=== PATIENT | female | born 1980 | race Caucasian/White ===

== ENCOUNTER 2018-10-10 08:23 | Emergency (ER) | payer SELFPAY ==
[2018-10-10 08:24] VITALS: BP 140/90; PULSE 103; RESP 18; TEMP 36.6; O2SAT 100; BMI 28.9
--- NOTE | 2018-10-10 08:38 | EKG12_ITS ---
Test Reason : DIZZINESS Blood Pressure : / mmHG Vent. Rate : 089 BPM Atrial Rate : 089 BPM P-R Int : 152 ms QRS Dur : 080 ms QT Int : 372 ms P-R-T Axes : 071 043 043 degrees QTc Int : 452 ms Normal sinus rhythm Normal ECG Confirmed by DAVON DU ([id number]), department editor DEBBI SALAS ([id number]) on 10/15/2018 1:34:05 PM Referred By: FERNANDO
--- NOTE | 2018-10-10 08:39 | ED.VIS.GEN ---
History of Present Illness Chief Complaint: Dizziness Detail of Chief Complaint: Intermittent dizzy episodes Informant: Patient Onset: Days Context: Gradual Onset Timing: Lasts - Minutes Current Severity: Mild Maximum Severity: Moderate Narrative: Patient presents with intermittent dizzy episodes. She states is been ongoing for the past couple of days. It tends to last only a few minutes at a time. She has noted some abdominal cramping with it and feels like her heart is racing. Today she felt like she might pass out. She denies chest pain or headache. No recent URI symptoms. Past Medical History - Allergies and Home Meds Allergies/Adverse Reactions: Allergies No Known Allergies Allergy (Verified 10/10/18 08:25) Primary Care Physician: LA OLGUIN [Other] Prior records reviewed: Yes Past Medical History: - - Reviewed Surgical History: hysterectomy Smoking Status: Former smoker Alcohol: None Drugs: Marijuana Review of Systems General: Denies: Chills, Fever Eyes: Denies: Visual changes - bilaterally ENT: Denies: Bilateral ear pain Cardiovascular: Reports: Heart racing. Denies: Chest pain Respiratory: Denies: Dyspnea, Cough Gastrointestinal: Reports: Abdominal pain. Denies: Nausea, Vomiting, Diarrhea Genitourinary: Denies: Dysuria, Hematuria Neurological: Denies: Headache, Weakness, Parasthesia Endocrine: Denies: Polyuria, Polydipsia Hematologic: Denies: Easy bruising Allergy: Denies: Uticaria Physical Exam Vital Signs/Narrative: Vital Signs Temp Pulse Resp BP Pulse Ox 10/10/18 08:24 97.9 F 103 H 18 140/90 H 100 Inital Vital Signs reviewed: Yes General: Well nourished, Well developed Eyes: Perrl, EOMI ENT: Moist mucous membranes, TM's clear Neck: Supple Cardiovascular: Regular rate, Regular rhythm Respiratory: No distress, CTA bilaterally Abdomen: Soft, Nontender, Hypoactive bowel sounds Extremities: Nontender Skin: Normal color, No rash Neurological: Alert, Oriented x3, Normal Strength, Normal Sensation Psychological: Normal affect Diagnostic/Tx/Re-eval Laboratory Results 10/10/18 10/10/18 10/10/18 08:50 08:50 08:50 WBC RBC Hgb Hct MCV MCH MCHC RDW Std Deviation RDW Coeff of Babatunde Plt Count MPV Immature Gran % (Auto) Neut % (Auto) Lymph % (Auto) [place] % (Auto) Eos % (Auto) Baso % (Auto) Absolute Neuts (auto) Absolute Lymphs (auto) Nucleated RBC % Sodium Potassium Chloride Carbon Dioxide Anion Gap BUN Creatinine Estim Creat Clear Calc Est GFR (MDRD) Af Amer Est GFR (MDRD) Non-Af BUN/Creatinine Ratio Glucose Calcium TSH Urine Color Yellow Urine Clarity Clear Urine pH 8.0 Ur Specific [place] 1.015 Urine Protein Negative Urine Glucose (UA) Normal Urine Ketones Negative Urine Occult Blood Negative Urine Nitrite Negative Urine Bilirubin Negative Urine Urobilinogen Normal Ur Leukocyte Esterase Negative Urine RBC 0 SEEN Urine WBC 0 SEEN Ur Squamous Epith Cells 0 SEEN Urine Bacteria 0 SEEN Urine Mucus 0 SEEN Urine Opiates Screen NEGATIVE Urine Methadone Screen NEGATIVE Ur Barbiturates Screen NEGATIVE Ur Phencyclidine Scrn NEGATIVE Ur Amphetamines Screen NEGATIVE U Methamphetamin-MDMA NEGATIVE U Benzodiazepines Scrn NEGATIVE Urine Cocaine Screen NEGATIVE U Cannabinoids Screen POSITIVE H Ur Drug Screen Comment POC Glucose 137 H 10/10/18 10/10/18 09:00 09:00 WBC 9.5 RBC 5.10 Hgb 16.0 H Hct 46.5 MCV 91.2 MCH 31.4 MCHC 34.4 RDW Std Deviation 41.3 RDW Coeff of Babatunde 12.4 Plt Count 326 MPV 9.4 Immature Gran % (Auto) 0.500 Neut % (Auto) 56.5 Lymph % (Auto) 33.3 [place] % (Auto) 5.2 Eos % (Auto) 3.6 Baso % (Auto) 0.9 Absolute Neuts (auto) 5.4 Absolute Lymphs (auto) 3.16 Nucleated RBC % 0 Sodium 144 Potassium 3.5 Chloride 111 H Carbon Dioxide 25.0 Anion Gap 8 BUN 13 Creatinine 1.03 H Estim Creat Clear Calc 67.94 Est GFR (MDRD) Af Amer 78 Est GFR (MDRD) Non-Af 64 BUN/Creatinine Ratio 12.6 Glucose 137 H Calcium 9.0 TSH 1.29 Urine Color Urine Clarity Urine pH Ur Specific [place] Urine Protein Urine Glucose (UA) Urine Ketones Urine Occult Blood Urine Nitrite Urine Bilirubin Urine Urobilinogen Ur Leukocyte Esterase Urine RBC Urine WBC Ur Squamous Epith Cells Urine Bacteria Urine Mucus Urine Opiates Screen Urine Methadone Screen Ur Barbiturates Screen Ur Phencyclidine Scrn Ur Amphetamines Screen U Methamphetamin-MDMA U Benzodiazepines Scrn Urine Cocaine Screen U Cannabinoids Screen Ur Drug Screen Comment POC Glucose - EKG Initial EKG Interpretation: Sinus Rhythm - Sinus 89 with no acute ischemia. - Medical Decision Making Patient was given a liter of IV fluid. On repeat evaluation heart rate is in the 70s. Test results were discussed with her. She states she feels better as long as she is lying in bed but still felt swimmy when she walks to the bathroom. She has had vertigo in the past. She is given a dose of Antivert at this time. On repeat examination patient does feel improved. She is encouraged to increase fluids at home. She will be given a prescription for Antivert. She will be referred to kenny Gagnon on the no doc list for follow-up. ED Disposition - Plan for ED Patient: Disposition: Home or Assisted Living Diagnosis: Dizzy Instructions: DIZZINESS, Unk Cause Prescriptions: Meclizine HCl [Antivert] 25 mg PO 4X/DAY PRN PRN #20 tablet PRN Reason: Dizziness Referrals: Turner Cuellar MD [STAFF PHYSICIAN] - 1-2 Weeks
[2018-10-10 09:00] LABS: Bedside Glucose 137 mg/dL (70-110)
[2018-10-10] MEDS: 0.9% Normal Saline 1,000 ML 150 ML IV (09:05)
[2018-10-10] MEDS: 0.9% Normal Saline 1,000 ML 1000 ML IV (09:05)
[2018-10-10 09:11] LABS: Bacteria 0 SEEN /hpf (None Seen); Mucous, Urine 0 SEEN /hpf (<or=2+); Red Blood Cells-Urine 0 SEEN /hpf (0-5); Squamous Epithelial Cells - UA 0 SEEN /hpf (5-10); White Blood Cells 0 SEEN /hpf (0-5)
[2018-10-10 09:15] LABS: Color, Urine Yellow (Yellow); Glucose, Dipstick Normal (Normal); Ketone-Dipstick Negative (Negative); Leukocyte Esterase-Dipstick Negative /ul (Negative); Nitrite-Dipstick Negative (Negative); Occult Blood-Urine Negative /ul (Negative); Protein-Dipstick Negative (Negative); Specific Gravity, Urine 1.015 (1.002-1.030); Urine Bilirubin Dipstick Negative (Negative); Urine Clarity Clear (Clear); Urine Urobilinogen Normal (Normal)
[2018-10-10 09:17] LABS: Absolute Lymphocyte Count 3.16 X10^3/uL (0.83-4.51); Absolute Neutrophil Count 5.4 X10^3/uL (2.0-7.7); Basophil# 0.09 X10^3/uL; Basophil% 0.9 % (0-1); Eosinophil# 0.34 X10^3/uL; Eosinophils% 3.6 % (0-5); Hematocrit 46.5 % (37-47); Lymphocyte # 3.16 X10^3/ul (4.0); Lymphocyte % 33.3 % (19-41); Mean Corp Hgb Conc 34.4 g/dL (32-36); Mean Corpuscular Hgb 31.4 pg (27.0-32.0); Mean Corpuscular Volume 91.2 fL (81-99); Mean Platelet Vol. 9.4 fl (6.2-12.0); Monocyte# 0.49 X10^3/uL; Monocyte% 5.2 % (0-10); NRBC Flagged by Analyzer 0 % (0-5); Neutrophil # 5.37 X10^3/uL (2.7-7.7); Neutrophil % 56.5 % (47-70); Platelet Count 326 K/mm3 (150-450); RBC Distribution Width CV 12.4 % (11.6-14.6); RBC Distribution Width SD 41.3 fl (35.1-43.9); White Blood Count 9.5 K/mm3 (4.4-11.0)
[2018-10-10 09:38] LABS: Anion Gap 8 (5-15); BUN 13 mg/dL (7-18); BUN/Creat Ratio 12.6 RATIO (10-20); Chloride 111 mmol/L (98-107); Creatinine, Serum 1.03 mg/dL (0.55-1.02); EST Glomerular Filtration Rate 64 mL/min (>60); Est Glom Filt Rate - Afr Amer 78 mL/min (>60); Estimated Creatinine Clearance 67.94 ml/min; Glucose 137 mg/dL (74-106); Potassium 3.5 mmol/L (3.5-5.1); Sodium Level 144 mmol/L (136-145); Thyroid Stim Hormone (TSH) 1.29 uIU/mL (0.358-3.74)
[2018-10-10 09:42] LABS: Amphetamine Urine VISTA NEGATIVE (<1000 ng/mL); Barbiturate Urine VISTA NEGATIVE (< 200 ng/mL); Benzodiazepine Urine VISTA NEGATIVE (< 200 ng/mL); Cocaine Urine VISTA NEGATIVE (< 300 ng/mL); Ecstacy Urine VISTA NEGATIVE (< 500 ng/mL); Methadone Urine VISTA NEGATIVE (< 300 ng/mL); PCP Urine VISTA NEGATIVE (< 25 ng/mL); THC Urine VISTA POSITIVE (< 50 ng/mL); Vista UDS pH Range 7
[2018-10-10 10:23] VITALS: BP 101/69; PULSE 69; RESP 18; O2SAT 100
[2018-10-10] MEDS: Meclizine HCl 25 MG Tablet PO (10:33)
== END 2018-10-10 11:20 | disposition home or self-care (01) ==
PROVIDERS: Emergency Provider Emergency Medicine
DX: R42 Dizziness and giddiness (principal); Z87.891 Personal history of nicotine dependence
CPT/HCPCS: 80048; 80307; 81001; 82962; 84443; 85025; 93005; 96360; 96361; 99285; J7030; A4216

== ENCOUNTER → 2021-09-15 | Outpatient (CLI) | payer BC, SELFPAY ==
[2021-09-15 14:28] LABS: Chlamydia Trachomatis by PCR Negative (Negative); Neisserai gonorrhoeae by PCR Negative (Negative); Probe Check PASS; Sample Adequacy Control PASS; Specimen Processing Control PASS
== END | disposition home or self-care (01) ==
PROVIDERS: PCP Family Medicine; Referring Provider Family Medicine; Visit Provider Family Medicine
DX: R33.9 Retention of urine, unspecified (principal)
CPT/HCPCS: 87086; 87491; 87591

== ENCOUNTER → 2021-11-24 | Outpatient (CLI) | payer BC, SELFPAY ==
--- NOTE | 2021-11-24 10:23 | RAD_ITS ---
STUDY: X-RAY - LEFT ELBOW REASON FOR EXAM: Female, 40 years old. Elbow pain. TECHNIQUE: 3 view(s) of the elbow. COMPARISON: None. FINDINGS: Normal visualized humerus, radius and ulna. Normal radiocapitellar and ulnotrochlear articulations. The soft tissue structures are unremarkable. RAD/Elbow min 3 Views IMPRESSION: Normal x-ray examination of the elbow. Electronically Signed: Phani Youssef, at 12:28 EDT ,
== END | disposition home or self-care (01) ==
LOC: MTRAD 10:19
PROVIDERS: PCP Family Medicine; Referring Provider Nurse Practitioner Family; Visit Provider Nurse Practitioner Family
DX: M77.12 Lateral epicondylitis, left elbow (principal)
CPT/HCPCS: 73080

== ENCOUNTER → 2021-12-01 | Outpatient (CLI) | payer BC, SELFPAY ==
[2021-12-01 12:39] LABS: Hematocrit 44.6 % (37-47); Hemoglobin 15.3 g/dL (12.0-15.0)
[2021-12-01 13:13] LABS: Anion Gap 3 (5-15); BUN 15 mg/dL (7-18); BUN/Creat Ratio 16.2 RATIO (10-20); Calcium,Total 9.6 mg/dL (8.5-10.1); Chloride 105 mmol/L (98-107); Creatinine, Serum 0.92 mg/dL (0.55-1.02); EST Glomerular Filtration Rate 71 mL/min (>60); Est Glom Filt Rate - Afr Amer 86 mL/min (>60); Glucose 105 mg/dL (74-106); Internal QC Validated? YES +Cl - CLEAR BKGD; Potassium 4.1 mmol/L (3.5-5.1); Pregnancy, Serum, hCG Quali. NEGATIVE Negative; Sodium Level 140 mmol/L (136-145)
== END | disposition home or self-care (01) ==
LOC: MTLAB 10:49
PROVIDERS: PCP Family Medicine; Referring Provider Otolaryngology Otolaryngology/Facial Plastic Surgery; Visit Provider Otolaryngology Otolaryngology/Facial Plastic Surgery
DX: Z01.818 Encounter for other preprocedural examination (principal)
CPT/HCPCS: 36415; 80048; 84703; 85014; 85018

== ENCOUNTER → 2021-12-29 | Outpatient (CLI) | payer BC, SELFPAY ==
--- NOTE | 2021-12-29 12:51 | TILTTABLE_ITS ---
Staff Staff: Alise Trejo and Jeannette Carr Summary Protocol: 70 Degree Upright Tilt Pre Test Resting HR: 78 Pre Test Resting BP: 108/68 Minimum Test HR: 76 Maximum Test HR: 131 Minimum Test BP: 95/56 Maximum Test BP: 122/71 Reason for Test Termination: Reached Maximum Test Time Physician Tilt Table Report Patient's Physicians Primary Care Physician: Echo Ojeda Mannequin Wig Maker: Adiel Demarco Indications/Diagnosis: Dizziness/lightheadedness Procedure Comments: The patient was brought to the tilt table laboratory and laid supine on the tilt table. The patient was awake and alert and warm and dry. The resting heart rate was 78 bpm with a resting blood pressure 108/68 mmHg. The cardiac rhythm was sinus rhythm. The patient was placed in the 70 degree upright tilt table position for approximately 20 minutes. The patient remained alert and oriented and warm and dry. The initial heart rate was 90 bpm with an initial blood pressure 104/61 mmHg. The lowest heart rate was at the end of the upright tilt table at 89 bpm and the lowest blood pressure was reported at 96/75 mmHg. The patient remained in sinus rhythm. There was notation of lightheadedness upon the initiation of the upright tilt, sensations of dizziness, feeling warm, back of neck feeling clammy, however, the patient did not lose consciousness. The patient was returned to the supine position. The patient was administered nitroglycerin 0.4 mg sublingual x1. The patient was returned to the 70 degree upright tilt table position for approximately 7 minutes. The patient remained alert and oriented. The patient was reported as appearing clammy at times. The initial heart rate was 121 bpm with an initial blood pressure 100/60 mmHg. The lowest heart rate was 76 bpm when the patient was returned to the supine position. The lowest blood pressure was reported at 95/56 mmHg. The patient was reported as remaining in sinus rhythm/sinus tachycardia. There was notation of the sensation of feeling hot, clammy, ears ringing, tunnel vision, and nausea. The patient did not lose consciousness. The patient was returned to the supine position. She remained alert and oriented and was reported as warm and dry. The concluding heart rate was 84 bpm with a concluding blood pressure 120/73 mmHg. The cardiac rhythm remained sinus rhythm. The patient was reported as taking oral intake well. The patient was subsequently released from the tilt table laboratory. Summary: 70 degree upright tilt table study pre and post nitroglycerin sublingual challenge demonstrated symptoms compatible with vasovagal mediated type symptoms but considered negative for reproducible vasovagal/neurocardiogenic mediated syncope. This note was generated using a voice recognition system and there may be incorrect words, spelling or punctuation that were not noted when reviewing the office note prior to saving.
[2021-12-29 12:59] VITALS: BP 108/68; BP 122/71; BP 95/56
== END | disposition home or self-care (01) ==
PROVIDERS: PCP Family Medicine; Referring Provider Otolaryngology; Visit Provider Otolaryngology
DX: R42 Dizziness and giddiness (principal)
CPT/HCPCS: 93660; J7040; A4216

== ENCOUNTER → 2023-04-05 | Outpatient (CLI) | payer BC, SELFPAY ==
[2023-04-05 15:33] LABS: Absolute Lymphocyte Count 2.65 X10^3/uL (0.83-4.51); Absolute Neutrophil Count 5.3 X10^3/uL (2.0-7.7); Basophil# 0.12 X10^3/uL; Basophil% 1.3 % (0-1); Eosinophils% 6.3 % (0-5); Hematocrit 40.5 % (37-47); Hemoglobin 13.3 g/dL (12.0-15.0); Lymphocyte # 2.65 X10^3/ul (0.83-4.51); Mean Corp Hgb Conc 32.8 g/dL (32-36); Mean Corpuscular Hgb 30.9 pg (27.0-32.0); Monocyte# 0.69 X10^3/uL; Monocyte% 7.3 % (0-10); NRBC Flagged by Analyzer 0 % (0-5); Neutrophil # 5.29 X10^3/uL (2.7-7.7); Platelet Count 369 K/mm3 (150-450); RBC Distribution Width CV 12.9 % (11.6-14.6); RBC Distribution Width SD 44.4 fl (35.1-43.9); Red Blood Count 4.31 M/mm3 (4.2-5.4); White Blood Count 9.5 K/mm3 (4.4-11.0)
[2023-04-05 15:52] LABS: Hemoglobin A1c 5.6 % (3.8-5.6)
[2023-04-05 15:56] LABS: ALB/GLOB Ratio 1.2 RATIO (0.9-2.4); AST(SGOT) 23 U/L (15-37); Alanine Aminotransfer ALT/SGPT 54 U/L (13-56); Albumin, Serum 3.6 g/dL (3.2-5.0); Alkaline Phosphatase 89 U/L (45-117); Anion Gap 3 (5-15); BUN 20 mg/dL (7-18); BUN/Creat Ratio 21.7 RATIO (10-20); Calcium,Total 8.9 mg/dL (8.5-10.1); Chloride 110 mmol/L (98-107); Cholesterol 246 mg/dL (200); Creatinine, Serum 0.92 mg/dL (0.55-1.02); EST Glomerular Filtration Rate 71 mL/min (>60); Est Glom Filt Rate - Afr Amer 86 mL/min (>60); Globulin 3.1 g/dL (2.2-4.2); Glucose 112 mg/dL (74-106); High Density Lipoprotein 68 mg/dL; Potassium 4.2 mmol/L (3.5-5.1); Protein, Total 6.7 g/dL (6.4-8.2); Sodium Level 138 mmol/L (136-145); Thyroid Stim Hormone (TSH) 1.06 uIU/mL (0.358-3.74); Triglycerides 98 mg/dL; Very Low Density Lipoprotein 20 mg/dL (5-40)
== END | disposition home or self-care (01) ==
LOC: MFPLAB 11:41
PROVIDERS: PCP Family Medicine; Visit Provider Family Medicine
DX: R11.0 Nausea (principal)
CPT/HCPCS: 36415; 80053; 80061; 83036; 84443; 85025